=== PATIENT | male | born 1985 | race Two or more races ===

== ENCOUNTER 2017-05-14 16:09 | Emergency (ER) | payer SELFPAY ==
[~2017-05-14] VITALS: Ht 172.7 cm; Wt 113.4 kg
--- NOTE | ~2017-05-14 | CT4 ---
[facility] A Service of [facility] [place] RADIOLOGY TEXT RESULTS PATIENT: REJI CROWLEY LOCATION: [facility] : [birth year] UNIT #: [id number] AGE: [address]: Phill Hauser MD SEX: M ORDER DR: [id number] [facility]. [place], [place] [address] [id number] MR#: [id number] Acc #: [id number] NAME: REJI CROWLEY : 1985 SEX: M STUDY DATE/TIME: 05/14/2017 17:56 UNIT: [facility] ROOM: STUDY DESCRIPTION: CT Abd and Pelv Wo Cont Attending Physician: Phill Hauser M.D. Ordering Physician: Phill Hauser M.D. Primary Care Physician: No Primary Care Physician MEDICAL IMAGING REPORT This report is preliminary unless electronic signature is present EXAM CT abdomen and pelvis. INDICATIONS Right flank pain for 5 days. HISTORY Renal calculi. TECHNIQUE CT of the abdomen and pelvis without contrast. Coronal and sagittal reconstructions were obtained. This CT exam was performed with one or more of the following radiation dose reduction techniques: Automatic exposure control, adjustment of mA and/or kV according to patient size, and iterative reconstruction. COMPARISON None available. FINDINGS Abdomen: No urinary calculi. There is a left renal collecting system. No hydronephrosis. There is diffuse hepatic steatosis. There is a nodular area of increased density in the medial left hepatic lobe (segment 4A). This probably an area of focal fatty sparing, however, consider a MRI to confirm. The gallbladder is nondistended. The small bowel is not dilated. The appendix is not clearly identified. There is no inflammatory change adjacent to the cecum. There is a small umbilical hernia. The abdominal aorta is normal in caliber. [facility] A Service [facility] RADIOLOGY TEXT RESULTS PATIENT: REJI CROWLEY LOCATION: [facility] : [birth year] UNIT #: [id number] AGE: [address]: Phill Hauser MD SEX: M ORDER DR: Pelvis: The bladder is unremarkable. No enlarged pelvic or inguinal lymph nodes. IMPRESSION 1. No acute findings in the abdomen or pelvis. Please note the appendix is not identified however there is no inflammatory change adjacent to the cecum. 2. Hepatic steatosis. There is a nodular area of increased density in the medial segment left hepatic lobe. This is probably an area of focal fatty sparing, however, consider further evaluation with a MRI to confirm. Dictated by... Nael Davis M.D. THIS IS AN ELECTRONICALLY VERIFIED REPORT Nael Davis M.D. at 05/15/2017 7:50 PM CHUCK/yvrose TD: 05/15/2017 17:51 JOB #: [id number] MEDICAL IMAGING REPORT Page 1 of 1 COPY
[2017-05-14 17:27] LABS: URINE SOURCE CLEAN CATCH
[2017-05-14 17:32] LABS: BASOPHIL# 0.1 X10e3 (0-0.3); BASOPHIL% 0.5 % (0-2.5); EOSINOPHIL# 0.1 X10e3 (0-0.7); EOSINOPHIL% 1.5 % (0.0-7.0); HEMATOCRIT 46.7 % (38.0-50.0); HEMOGLOBIN 15.5 gm/dL (13.0-16.0); LYMPHOCYTE# 2.6 X10e3 (1.0-3.5); LYMPHOCYTE% 27.2 % (17.0-45.0); MEAN CORPUSCULAR HEMOGLOBIN 27.3 PG (28-34); MEAN CORPUSCULAR HGB CONC 33.2 g/dL (30-36); MEAN PLATELET VOLUME 7.5 FL (6.5-11.5); MONOCYTE# 0.8 X10e3 (0-1.0); MONOCYTE% 8.3 % (3.0-12.0); NEUTROPHIL# 5.9 X10e3 (1.5-7.1); NEUTROPHIL% 62.5 % (40-75); PLATELET COUNT 323 X10e3 (140-420); RED BLOOD COUNT 5.69 X10e (3.90-5.60); RED CELL DISTRIBUTION WIDTH 13.2 % (11.0-15.5); WHITE BLOOD COUNT 9.4 X10e3 (4.0-10.5)
[2017-05-14 17:34] LABS: DIFF IND NO
[2017-05-14 17:36] LABS: URINE APPEARANCE CLEAR; URINE BILIRUBIN NEG (NEG); URINE BLOOD NEG (NEG); URINE COLOR YELLOW; URINE GLUCOSE NEG (NEG); URINE KETONE NEG (NEG); URINE LEUKOCYTE ESTERASE NEG (NEG); URINE NITRATE NEG (NEG); URINE PH 6.5 (5-8); URINE PROTEIN NEG (NEG); URINE SPECIFIC GRAVITY 1.023 (1.003-1.035); URINE UROBILINOGEN 0.2 MG/DL (NEG)
[2017-05-14 17:53] LABS: ALBUMIN SERUM 4.3 g/dL (3.5-5.0); BILIRUBIN, DIRECT 0.1 mg/dL (0.0-0.2); BILIRUBIN,INDIRECT 0.3 mg/dL (0.0-0.9); BILIRUBIN,TOTAL 0.4 mg/dL (0.2-2.0); GLOM FILT RATE Estimated 99.9 mL/min (>60); POTASSIUM 3.8 mmol/L (3.5-5.1); PROTEIN TOTAL SERUM 7.4 g/dL (6.0-8.3)
== END 2017-05-14 18:45 | disposition home or self-care (01) ==
LOC: CED 16:09
PROVIDERS: Emergency Medicine
DX: R10.9 Unspecified abdominal pain (principal)
CPT/HCPCS: 36415; 74176; 80048; 80076; 81003; 82150; 83690; 85025; 96374; 99284; J1885